=== PATIENT | female | born 1985 | race Caucasian/White ===

== ENCOUNTER 2017-03-09 17:37 | Emergency (ER) | payer SELFPAY ==
[~2017-03-09] VITALS: Ht 167.6 cm; Wt 66.7 kg
[2017-03-09 17:52] VITALS: BP 140/95
[2017-03-09 18:56] LABS: Urine Bacteria NONE SEEN /hpf (None Seen); Urine Blood TRACE /uL (Negative); Urine Mucus FEW (None Seen); Urine Specific Gravity 1.016 (1.001-1.035); Urine WBC 4 /hpf (0 - 5)
[2017-03-09 22:41] LABS: Amphetamine Screen, Urine NEGATIVE (NEGATIVE); Barbiturate Scree,Urine NEGATIVE (NEGATIVE); Benzodiazephine Screen, Urine NEGATIVE (NEGATIVE); Cannabinoid Screen, Urine NEGATIVE (NEGATIVE); Cocaine Screen, Urine NEGATIVE (NEGATIVE); Opiate Scree,Urine NEGATIVE (NEGATIVE); Phencyclidine Screen, Urine NEGATIVE (NEGATIVE)
== END 2017-03-10 00:40 | disposition left against medical advice (07) ==
LOC: ER 17:42
DX: F10.239 Alcohol dependence with withdrawal, unspecified (principal); Z53.21 Procedure and treatment not carried out due to patient leaving prior to being seen by health care provider
CPT/HCPCS: 80307; 81001; 81025

== ENCOUNTER 2017-05-13 10:56 | Emergency (ER) | payer SELFPAY ==
[~2017-05-13] VITALS: Ht 160 cm; Wt 70.8 kg
[2017-05-13 11:09] VITALS: BP 122/83
== END 2017-05-13 12:37 | disposition home or self-care (01) ==
LOC: ER 10:56
DX: M77.9 Enthesopathy, unspecified (principal); Z98.890 Other specified postprocedural states
CPT/HCPCS: 73630